=== PATIENT | female | born 1945 | race Caucasian/White ===

== ENCOUNTER → 2016-09-02 | Outpatient (CLI) | payer BC ==
[2016-09-02 18:21] LABS: URINE APPEARANCE CLEAR (CLEAR); URINE BILIRUBIN NEG (NEG); URINE COLOR YELLOW; URINE NITRITE NEG (NEG); URINE SPECIFIC GRAVITY 1.018 (1.000-1.030); UROBILINOGEN NEG (NEG)
[2016-09-02 18:25] LABS: MANUAL MICROSCOPIC REQUIRED? NO; REVIEW REQ? NO
== END | disposition home or self-care (01) ==
LOC: C.LABSPEC 17:43
PROVIDERS: ATTEND Obstetrics & Gynecology
DX: R10.2 Pelvic and perineal pain (principal)

== ENCOUNTER → 2016-09-21 | Outpatient (CLI) | payer BC | END | disposition home or self-care (01) | LOC: C.PATHSPEC 17:56 | PROVIDERS: ATTEND Obstetrics & Gynecology | DX: R93.8 Abnormal findings on diagnostic imaging of other specified body structures (principal); N85.8 Other specified noninflammatory disorders of uterus ==

== ENCOUNTER → 2016-11-02 | Outpatient (CLI) | payer BC | END | disposition home or self-care (01) | LOC: C.MAMM 12:22 | PROVIDERS: ATTEND Family Medicine | DX: E28.39 Other primary ovarian failure (principal) ==

== ENCOUNTER → 2016-11-09 | Outpatient (CLI) | payer BC ==
--- NOTE | 2016-11-09 15:56 | MAMMOGRAPHY REPORT ---
BILATERAL DIGITAL SCREENING MAMMOGRAM TOMOSYNTHESIS WITH CAD: 11/09/2016 CLINICAL HISTORY: Routine screening. Patient has no complaints. TECHNIQUE: Breast tomosynthesis in addition to standard 2D mammography was performed. Current study was also evaluated with a Computer Aided Detection (CAD) system. COMPARISON: Comparison is made to exams dated: 11/07/2015 mammogram, 11/05/2014 mammogram, 11/01/2012 m ammogram, 11/02/2013 mammogram, 11/01/2011 mammogram, and 10/20/2010 mammogram - [facility] enter. BREAST COMPOSITION: There are scattered areas of fibroglandular density in both breasts. FINDINGS: The parenchymal pattern is similar to prior mammograms. There are scattered benign-appear ing calcifications in the breasts. No developing mass, architectural distortion or cluster of suspic ious microcalcifications is seen. IMPRESSION: ACR BI-RADS CATEGORY 2: BENIGN There is no mammographic evidence of malignancy. A 1 year screening mammogram is recommended. The pa tient will receive written notification of the results. Approximately 10% of breast cancers are not detected with mammography. A negative mammographic report should not delay biopsy if a clinically suggestive mass is present. Karin Solorio M.D. ay/:11/09/2016 15:38:41 Short Piece Handler: Fawn SANCHEZ)(M), [facility] letter sent: Normal 1/2 BI-RADS Code: ACR BI-RADS Category 2: Benign
== END | disposition home or self-care (01) ==
LOC: C.MAMM 11:02
PROVIDERS: ATTEND Family Medicine
DX: Z12.31 Encounter for screening mammogram for malignant neoplasm of breast (principal)

== ENCOUNTER → 2017-12-13 | Outpatient (CLI) | payer BC | END | disposition home or self-care (01) | LOC: C.RDSM 16:07 | PROVIDERS: ATTEND Orthopaedic Surgery | DX: M25.562 Pain in left knee (principal); M25.561 Pain in right knee ==